=== PATIENT | male | born 1990 | race Hispanic/Latino ===

== ENCOUNTER → 2017-05-18 | Outpatient (CLI) | payer MEDICAID | LOC: M OUTALCOH 12:47 | PROVIDERS: ATTEND Psychiatry & Neurology Psychiatry | DX: Z03.89 Encounter for observation for other suspected diseases and conditions ruled out (principal) ==

== ENCOUNTER → 2020-07-20 | Outpatient (REF) | payer OTHER | LOC: M LAB REF 12:53 | PROVIDERS: ATTEND Physician Assistant Medical | DX: Z20.828 Contact with and (suspected) exposure to other viral communicable diseases (principal) ==

== ENCOUNTER → 2021-02-17 | Outpatient (REF) | payer OTHER | LOC: M LAB REF 11:18 | PROVIDERS: ATTEND Surgery | DX: Z20.822 Contact with and (suspected) exposure to COVID-19 (principal) ==

== ENCOUNTER 2021-08-04 14:26 | Emergency (ER) | payer OTHER ==
[~2021-08-04] VITALS: Ht 172.7 cm; Wt 111.6 kg
[2021-08-04 14:26] VITALS: BP 148/104
[2021-08-04 16:57] LABS: GC DNA AMPLIFICATION NEGATIVE (NEGATIVE)
== END 2021-08-04 15:27 | disposition left against medical advice (07) ==
LOC: M ED 14:26
DX: Z53.21 Procedure and treatment not carried out due to patient leaving prior to being seen by health care provider (principal)

== ENCOUNTER → 2023-04-05 | Outpatient (CLI) | payer OTHER | LOC: M WUC 09:11 | PROVIDERS: ATTEND Family Medicine Addiction Medicine | DX: S69.91XA Unspecified injury of right wrist, hand and finger(s), initial encounter (principal); X58.XXXA Exposure to other specified factors, initial encounter; Y92.9 Unspecified place or not applicable; Y93.9 Activity, unspecified; Y99.9 Unspecified external cause status ==

== ENCOUNTER → 2023-06-14 | Outpatient (CLI) | payer OTHER | LOC: M SOG 09:34 | PROVIDERS: ATTEND Orthopaedic Surgery Hand Surgery | DX: M79.644 Pain in right finger(s) (principal) ==

== ENCOUNTER → 2024-02-08 | Outpatient (REF) | payer OTHER ==
[2024-02-08 17:28] LABS: ALBUMIN 3.8 G/DL (3.2-5.2); ALKALINE PHOSPHATASE 114 U/L (46-116); ALT/SGPT 32 U/L (7.0-40); AST/SGOT 22 U/L (<34); BILIRUBIN,TOTAL 0.6 MG/DL (0.3-1.2); BLOOD UREA NITROGEN 18 MG/DL (9-23); CALCIUM LEVEL 9.1 MG/DL (8.5-10.1); CARBON DIOXIDE LEVEL 30 MMOL/L (20-31); CHLORIDE LEVEL 107 MMOL/L (98-107); CHOLESTEROL LEVEL 174 MG/DL (<200); CHOLESTEROL RISK RATIO 5.48 (<5); CREATININE FOR GFR 0.89 MG/DL (0.70-1.30); GLOMERULAR FILTRATION RATE > 60.0 (>60); GLUCOSE, FASTING 82 MG/DL (60-100); HDL CHOLESTEROL 31.7 MG/DL (>40); LDL CHOLESTEROL 117.5 MG/DL (<100); NON-HDL-C 142.3 MG/DL; POTASSIUM SERUM 4.9 MMOL/L (3.5-5.1); SODIUM LEVEL 141 MMOL/L (136-145); TRIGLYCERIDES LEVEL 124 MG/DL (<150)
[2024-02-08 17:30] LABS: THYROID STIMULATING HORMONE 1.076 uIU/ML (0.55-4.78)
== END ==
LOC: M LAB REF 16:16
PROVIDERS: ATTEND Family Medicine Addiction Medicine
DX: R03.0 Elevated blood-pressure reading, without diagnosis of hypertension (principal)

== ENCOUNTER → 2024-10-31 | Outpatient (REF) | payer OTHER ==
[2024-10-31 15:03] LABS: Trichomonas vaginalis (AMP) NOT DETECTED (NEGATIVE)
[2024-10-31 15:27] LABS: GC DNA AMPLIFICATION NEGATIVE (NEGATIVE)
== END ==
LOC: M LAB REF 13:00
PROVIDERS: ATTEND Family Medicine Addiction Medicine
DX: Z11.3 Encounter for screening for infections with a predominantly sexual mode of transmission (principal)

== ENCOUNTER → 2024-10-31 | Outpatient (REF) | payer OTHER ==
[2024-10-31 15:18] LABS: HIV 1&2 SCREEN NEGATIVE (NEGATIVE)
[2024-10-31 15:26] LABS: HEPATITIS C VIRUS ABY INDEX < 0.02 INDEX (<0.8)
== END ==
LOC: M LAB REF 12:06
PROVIDERS: ATTEND Family Medicine Addiction Medicine
DX: Z11.3 Encounter for screening for infections with a predominantly sexual mode of transmission (principal)

== ENCOUNTER → 2025-06-20 | Outpatient (REF) | payer MEDICAID, OTHER ==
[2025-06-20 18:30] LABS: HIV 1&2 SCREEN NEGATIVE (NEGATIVE)
[2025-06-20 18:38] LABS: HEPATITIS C VIRUS ABY INDEX < 0.02 INDEX (<0.8)
[2025-06-20 19:14] LABS: Trichomonas vaginalis (AMP) NOT DETECTED (NEGATIVE)
[2025-06-20 19:39] LABS: GC DNA AMPLIFICATION NEGATIVE (NEGATIVE)
== END ==
LOC: M LAB REF 16:21
PROVIDERS: ATTEND Family Medicine Addiction Medicine
DX: Z11.3 Encounter for screening for infections with a predominantly sexual mode of transmission (principal)

== ENCOUNTER → 2025-09-02 | Outpatient (REF) | payer OTHER ==
[2025-09-02 21:56] LABS: APPEARANCE, URINE CLEAR (CLEAR); BACTERIA, URINE AUTO NEGATIVE (NEGATIVE); BILIRUBIN, URINE AUTO NEGATIVE (NEGATIVE); BLOOD, URINE BLOOD NEGATIVE (NEGATIVE); GLUCOSE, URINE (UA) AUTO NEGATIVE (NEGATIVE); KETONE, URINE AUTO NEGATIVE (NEGATIVE); LEUKOCYTE ESTERASE, URINE AUTO NEGATIVE (NEGATIVE); MUCUS, URINE SMALL (NEGATIVE); NITRITE, URINE AUTO NEGATIVE (NEGATIVE); PROTEIN, URINE AUTO NEGATIVE (NEGATIVE); RBC, URINE AUTO 0 /HPF (0-3); SPECIFIC GRAVITY URINE AUTO 1.027 (1.002-1.035); SQUAMOUS EPITHELIAL CELL UR AU 0 /HPF (0-6); UROBILINOGEN, URINE AUTO 2.0 mg/dL (0.0-2.0); WBC, URINE AUTO 1 /HPF (0-3)
[2025-09-02 22:58] LABS: Trichomonas vaginalis (AMP) NOT DETECTED (NEGATIVE)
[2025-09-02 23:22] LABS: GC DNA AMPLIFICATION NEGATIVE (NEGATIVE)
== END ==
LOC: M LAB REF 21:37
PROVIDERS: ATTEND Physician Assistant Medical
DX: Z20.2 Contact with and (suspected) exposure to infections with a predominantly sexual mode of transmission (principal)